=== PATIENT | male | born 1995 ===

== ENCOUNTER 2019-08-09 11:31 | Emergency (ER) | payer OTHER ==
[~2019-08-09] VITALS: Ht 175.3 cm; Wt 88.6 kg
[2019-08-09 11:53] VITALS: BP 125/74
== END 2019-08-09 13:39 | disposition home or self-care (01) ==
LOC: ED 13:34
DX: S89.91XA Unspecified injury of right lower leg, initial encounter (principal); M25.461 Effusion, right knee; F17.200 Nicotine dependence, unspecified, uncomplicated; X58.XXXA Exposure to other specified factors, initial encounter; Y93.89 Activity, other specified; Y92.149 Unspecified place in prison as the place of occurrence of the external cause; Y99.8 Other external cause status
CPT/HCPCS: 29505; 99283